=== PATIENT | male | born 1990 | race Two or more races ===

== ENCOUNTER 2017-09-01 20:06 | Emergency (ER) | payer OTHER ==
[~2017-09-01] VITALS: Ht 175.3 cm; Wt 74.8 kg
--- NOTE | 2017-09-01 21:15 | NUR ---
Patient ambulated to ER with steady gait, c/o abdominal pain, nausea and vomiting x 3-4 days, and constipation last BM 08/30/17.
--- NOTE | 2017-09-01 21:20 | NUR ---
Dr. Blackwood at bedside for MSE.
[2017-09-01] MEDS ORDERED: METOCLOPRAMIDE HCL 10 MG/2 ML VIAL IV ONE (21:30)
[2017-09-01] MEDS ORDERED: KETOROLAC TROMETHAMINE 15 MG INJ IV ONE (21:30)
[2017-09-01] MEDS ORDERED: IV NORMAL SALINE 1000 ML BAG IV ONE (21:30)
[2017-09-01] MEDS ORDERED: METOCLOPRAMIDE HCL 10 MG/2 ML VIAL ONE (21:44)
[2017-09-01] MEDS ORDERED: KETOROLAC TROMETHAMINE 15 MG INJ ONE (21:44)
[2017-09-01 21:49] LABS: BASOPHILS # (AUTO) 0.1 K/uL (0.0-8.0); BASOPHILS % (AUTO) 0.8 % (0.0-2.0); EOSINOPHILS # (AUTO) 0.1 K/uL (0.0-0.7); EOSINOPHILS % (AUTO) 0.8 % (0.0-7.0); HEMOGLOBIN 17.2 g/dL (12.5-16.3); LYMPHOCYTES # (AUTO) 3.1 K/uL (20.0-40.0); LYMPHOCYTES % (AUTO) 30.4 % (20.5-51.5); MEAN CORPUSCULAR HEMOGLOBIN 29.7 uug (23.8-33.4); MEAN CORPUSCULAR HGB CONC 35 g/dL (32.5-36.3); MEAN CORPUSCULAR VOLUME 86.3 fL (73.0-96.2); MONOCYTES # (AUTO) 0.9 K/uL (2.0-10.0); MONOCYTES % (AUTO) 8.7 % (0.0-11.0); NEUTROPHILS % (AUTO) 59.3 % (38.5-71.5); PLATELET COUNT (AUTO) 250 K/uL (152-348); WHITE BLOOD COUNT (AUTO) 10.1 K/uL (3.6-10.2)
--- NOTE | 2017-09-01 21:51 | NUR ---
Patient out of ER for CT Scan.
[2017-09-01 22:04] LABS: BILIRUBIN,DIRECT 0.2 mg/dL (0.0-0.2); BILIRUBIN,TOTAL 0.7 mg/dL (0.2-1.0); CREATININE 0.8 mg/dL (0.6-1.3); POTASSIUM 3.8 mmol/L (3.5-5.1); TOTAL PROTEIN, SERUM 8.3 g/dL (6.4-8.2)
--- NOTE | 2017-09-01 22:05 | NUR ---
Patient back to ER from [facility] via [facility].
--- NOTE | 2017-09-01 22:10 | NUR ---
Patient reports feeling better with decreased pain and no longer nauseous.
[2017-09-01 22:38] LABS: *BILIRUBIN,URIN NEGATIVE (NEGATIVE); *BLOOD, URINE Trace-intact (NEGATIVE); *CLARITY,URINE CLEAR (CLEAR); *COLOR,URINE YELLOW (YELLOW); *KETONES,URINE 3+ (NEGATIVE); *PROTEIN,URINE NEGATIVE (NEGATIVE); *UROBILINOGEN,URINE 0.2 E.U./dl (NORMAL); LEUKOCYTE ESTERASE ,URINE NEGATIVE (NEGATIVE); NITRITE, URINE NEGATIVE (NEGATIVE); PH,URINE 6.5 (5.0-8.0); UGLUCOSE NEGATIVE (NEGATIVE)
[2017-09-01 22:45] LABS: BACTERIA,URINE NONE SEEN /HPF (NONE SEEN); MUCUS,URINE MANY /LPF (0-FEW); RBC,URINE 0-3 /HPF (0-3); SQUAMOUS EPITHELIAL CELL,UR FEW /HPF (NONE SEEN); WBC,URINE 0-3 /HPF (0-3)
--- NOTE | 2017-09-01 23:48 | NUR ---
Patient discharged to home in stable conditon. Written and verbal after care instructions given. Patient verbalizes understanding of instructions. Patient ambulated out of ER with steady gait, no acute signs of distress, VSS, all belongings taken.
[2017-09-01 23:49] VITALS: BP 115/78
== END 2017-09-01 23:50 | disposition home or self-care (01) ==
LOC: ER 20:07
DX: R10.13 Epigastric pain (principal)
CPT/HCPCS: 36415; 70030-TC; 83690; 85025; A4663; J1885; J2765; J7030

== ENCOUNTER 2018-10-04 22:16 | Emergency (ER) | payer OTHER ==
[~2018-10-04] VITALS: Ht 177.8 cm; Wt 81.6 kg
--- NOTE | 2018-10-04 22:50 | NUR ---
Dr. Domingo at bedside for MSE.
--- NOTE | 2018-10-04 22:58 | NUR ---
Patient discharged to home in stable conditon. Written and verbal after care instructions given. Patient verbalizes understanding of instructions. Pt ambulated out of ER with steady gait, no acute signs of distress, VSS, all belongings taken.
[2018-10-04 23:00] VITALS: BP 154/92
== END 2018-10-04 23:01 | disposition home or self-care (01) ==
LOC: ER 22:18
DX: K59.00 Constipation, unspecified (principal); K29.70 Gastritis, unspecified, without bleeding; G47.00 Insomnia, unspecified; F12.10 Cannabis abuse, uncomplicated
CPT/HCPCS: A4663